=== PATIENT | male | born 1980 | race Caucasian/White ===

== ENCOUNTER 2019-10-30 11:17 | Emergency (ER) | payer MEDICAID ==
[~2019-10-30] VITALS: Ht 160 cm; Wt 79.0 kg
[2019-10-30] MEDS ORDERED: CYCLOBENZAPRINE 10MG TABLET PO ONE (11:45)
[2019-10-30] MEDS ORDERED: KETOROLAC 30MG/ML VIAL IM ONE (11:45)
[2019-10-30 12:05] VITALS: BP 119/62
== END 2019-10-30 12:07 | disposition home or self-care (01) ==
LOC: ER 11:54
DX: S39.012A Strain of muscle, fascia and tendon of lower back, initial encounter (principal); X50.3XXA Overexertion from repetitive movements, initial encounter; X50.1XXA Overexertion from prolonged static or awkward postures, initial encounter; Y93.89 Activity, other specified; Y92.9 Unspecified place or not applicable
CPT/HCPCS: 96372; 99283; J1885